=== PATIENT | female | born 1960 | race Two or more races ===

== ENCOUNTER 2022-01-09 09:52 | Day surgery (SDC) | payer MEDICAID ==
[2022-01-07 12:50] LABS: Urine WBC None Seen /hpf (0 - 5)
[2022-01-07 12:57] LABS: Urine Bacteria NONE SEEN /hpf (None Seen); Urine Blood Negative /uL (Negative); Urine Mucus FEW (None Seen)
[2022-01-07 13:00] LABS: Basophils # (auto) 0.1 10 ^3/uL (0-0.2); Eosinophils # (auto) 0.2 10 ^3/uL (0-0.8); Eosinophils % (auto) 2.8 % (0.0-7.0); Hematocrit 44.8 % (36.0-46.0); Hemoglobin 14.9 g/dL (12.2-16.2); Lymphocytes # (auto) 3.2 10 ^3/uL (0.4-5.4); Lymphocytes % (auto) 45.6 % (10.0-50.0); Mean Corpuscular Hemoglobin 31.5 pg (28.0-32.0); Mean Corpuscular Hgb Conc. 33.3 g/dL (32.0-36.0); Mean Corpuscular Volume 94.6 fL (80.0-100.0); Monocytes # (auto) 0.6 10 ^3/uL (0-1.3); Monocytes % (auto) 8.6 % (0.0-12.0); Neutrophils # (auto) 2.8 10 ^3/uL (1.6-8.6); Nucleated Red Blood Cells % 0.1 %; Red Blood Cells 4.74 10^6/uL (4.0-5.20); Red Cell Distribution Width 13.3 % (11.8-14.3); White Blood Cell 6.9 10^3/uL (4.4-10.8)
[2022-01-07 13:20] LABS: Albumin 3.4 g/dL (3.4-5.0); Calcium 9.2 mg/dL (8.5-10.1); Potassium 4.4 mmol/L (3.5-5.1)
[2022-01-07 13:22] LABS: BUN/Creatinine Ratio 16.2
[2022-01-07 13:25] LABS: Bilirubin, Total 0.3 mg/dL (0.2-1.0); INR 0.99 (0.9-1.15); Partial Thromboplastin Time 26.5 sec (23.6-33.0); Total Protein 7.1 g/dL (6.4-8.2)
[~2022-01-09] VITALS: Ht 162.6 cm; Wt 86.2 kg
[~2022-01-09 09:52] MED LIST: FAMO20TA10 PO; OMEP20TA PO; OXY5T PO
[2022-01-09] MEDS ORDERED: fentaNYL CITRATE 100 MCG/2 ML VL ONE (11:55)
[2022-01-09] MEDS ORDERED: MIDAZOLAM HCL 2MG/2ML 2ml VIAL (1mg/ml) ONE (11:55)
[2022-01-09] MEDS ORDERED: PROPOFOL 10 MG/ML 20 ML IV ONE (12:24)
[2022-01-09] MEDS ORDERED: ONDANSETRON HCL 4 MG/2 ML VIAL IV PRN (12:45)
== END 2022-01-09 13:00 | disposition home or self-care (01) ==
LOC: GI 09:52
PROVIDERS: ATTEND Internal Medicine Gastroenterology
DX: Z12.11 Encounter for screening for malignant neoplasm of colon (principal); K31.1 Adult hypertrophic pyloric stenosis; K44.9 Diaphragmatic hernia without obstruction or gangrene; K29.50 Unspecified chronic gastritis without bleeding; K57.30 Diverticulosis of large intestine without perforation or abscess without bleeding; K64.8 Other hemorrhoids; K64.4 Residual hemorrhoidal skin tags; K63.89 Other specified diseases of intestine; K21.9 Gastro-esophageal reflux disease without esophagitis; Z98.890 Other specified postprocedural states; Z79.899 Other long term (current) drug therapy; Z88.6 Allergy status to analgesic agent; Z87.891 Personal history of nicotine dependence; Z20.822 Contact with and (suspected) exposure to COVID-19; Z86.2 Personal history of diseases of the blood and blood-forming organs and certain disorders involving the immune mechanism
CPT/HCPCS: 36415; 43239; 43249; 45378; 80053; 81001; 85025; 85610; 85730; 88305; 88342; C1726; J2250; J2704; J3010; J7030; U0003; 99152; 99153

== ENCOUNTER 2022-03-21 16:57 | Emergency (ER) | payer MEDICAID ==
[~2022-03-21] VITALS: Ht 162.6 cm; Wt 85.0 kg
[2022-03-21 19:13] VITALS: BP 138/66
[2022-03-21] MEDS ORDERED: ERYTHROMY OPTH OINT 5mg/gm 1gm or 3.5gm tube OP ONE (19:45)
== END 2022-03-21 19:59 | disposition home or self-care (01) ==
LOC: ER 16:59
DX: S05.12XA Contusion of eyeball and orbital tissues, left eye, initial encounter (principal); Z79.899 Other long term (current) drug therapy; Z88.6 Allergy status to analgesic agent; W22.8XXA Striking against or struck by other objects, initial encounter; Y93.89 Activity, other specified; Y92.89 Other specified places as the place of occurrence of the external cause; Y99.8 Other external cause status

== ENCOUNTER 2023-04-04 17:52 | Inpatient (IN) | payer MEDICAID ==
[~2023-04-04] VITALS: Ht 162.6 cm; Wt 92.5 kg
[2023-04-04 18:17] VITALS: O2SAT 95
[2023-04-04 19:20] LABS: Basophils # (auto) 0.1 10 ^3/uL (0-0.2); Basophils % (auto) 0.9 % (0.0-2.0); Eosinophils # (auto) 0.2 10 ^3/uL (0-0.8); Eosinophils % (auto) 2.3 % (0.0-7.0); Hematocrit 48.9 % (36.0-46.0); Hemoglobin 16.6 g/dL (12.2-16.2); Lymphocytes # (auto) 1.5 10 ^3/uL (0.4-5.4); Lymphocytes % (auto) 16.1 % (10.0-50.0); Mean Corpuscular Hemoglobin 32.1 pg (28.0-32.0); Mean Corpuscular Hgb Conc. 33.9 g/dL (32.0-36.0); Mean Corpuscular Volume 94.5 fL (80.0-100.0); Monocytes % (auto) 10.9 % (0.0-12.0); Neutrophils # (auto) 6.4 10 ^3/uL (1.6-8.6); Neutrophils % (auto) 69.8 % (37.0-80.0); Nucleated Red Blood Cells % 0.1 %; Red Blood Cells 5.17 10^6/uL (4.0-5.20); Red Cell Distribution Width 13.7 % (11.8-14.3); White Blood Cell 9.1 10^3/uL (4.4-10.8)
[2023-04-04 19:27] LABS: INR 1.04 (0.9-1.15); Partial Thromboplastin Time 30.7 SEC (24.5-34.5); Prothrombin Time 10.9 sec (9.3-11.8)
[2023-04-04 19:30] VITALS: PULSE 80; RESP 20; O2SAT 97
[2023-04-04] MEDS ORDERED: MORPHINE SULFATE 4 MG/ML SYR/VIAL IV ONE (20:00)
[2023-04-04] MEDS ORDERED: ONDANSETRON HCL 4 MG/2 ML VIAL IV ONE (20:00)
[2023-04-04] MEDS ORDERED: DexAMETHasone SOD PHOS 10MG/1ML VIAL INJ IV ONE (21:00)
[2023-04-04] MEDS ORDERED: ALBUTEROL SULF 2.5 MG/0.5ML(0.5%) NEB SOLN NEB ONE (21:00)
[2023-04-04] MEDS ORDERED: LORazepam 2MG/ML-1ML VIAL IV ONE (21:00)
[2023-04-04 23:10] LABS: COVID19 ANTIGEN SOFIA FIA POSITIVE (NEGATIVE)
[2023-04-05] VITALS (14 sets, daily range): BP systolic 102–123; BP diastolic 49–68; PULSE 61–81; RESP 16–20; TEMP 97.4–98.5; O2SAT 91–96
[2023-04-05] MEDS ORDERED: ONDANSETRON HCL 4 MG/2 ML VIAL IV PRN (01:30)
[2023-04-05] MEDS ORDERED: ALBUTEROL SULF 2.5 MG/0.5ML(0.5%) NEB SOLN NEB PRN (01:30)
[2023-04-05] MEDS ORDERED: NITROGLYCERIN 0.4 MG SL TAB SL PRN (01:30)
[2023-04-05] MEDS ORDERED: HYDROcodone-ACET 5/325MG TAB PO PRN (01:30)
[2023-04-05] MEDS ORDERED: LORazepam 2MG/ML-1ML VIAL IV PRN (01:30)
[2023-04-05] MEDS ORDERED: DOCUSATE SOD 100 MG CAP PO PRN (01:30)
[2023-04-05] MEDS ORDERED: MORPHINE SULFATE INJ 2 MG/ml SYRG IV PRN (01:30)
[2023-04-05 02:02] LABS: Alanine Aminotransferase 32 U/L (7-40); Albumin 4.5 g/dL (3.2-4.8); Alkaline Phosphatase 94 U/L (46-116); Anion Gap 15 (5-15); Aspartate Aminotransferase 29 U/L (13-40); Bilirubin, Total 0.4 mg/dL (0.2-1.0); Calcium 9.2 mg/dL (8.7-10.4); Carbon Dioxide 17 mmol/L (20-30); Chloride 107 mmol/L (98-107); Glucose 97 mg/dL (74-106); Potassium 4.3 mmol/L (3.5-5.1); Sodium 139 mmol/L (136-145); Total Protein 7.4 g/dL (5.7-8.2)
[2023-04-05 02:13] LABS: BUN/Creatinine Ratio 6.7 (10.0-20.0); Blood Urea Nitrogen < 5 mg/dL (9-23)
[2023-04-05] MEDS: DOXYCYCLINE 100MG/250ML 250 ML IV SCH ×2 (04:19→18:22)
[2023-04-05] MEDS: SODIUM CHLOR 0.9% PF (SALINE LOCK) 10ML VIAL/SYR IV SCH ×3 (06:00→21:16)
[2023-04-05] MEDS ORDERED: ALBUTEROL SULF HFA 90MCG INH 200DOSE IN SCH (06:00)
[2023-04-05 06:41] LABS: Basophils # (auto) 0 10 ^3/uL (0-0.2); Basophils % (auto) 0.1 % (0.0-2.0); Eosinophils # (auto) 0 10 ^3/uL (0-0.8); Hematocrit 46.2 % (36.0-46.0); Hemoglobin 15.8 g/dL (12.2-16.2); Lymphocytes # (auto) 0.7 10 ^3/uL (0.4-5.4); Lymphocytes % (auto) 12.1 % (10.0-50.0); Mean Corpuscular Hemoglobin 32.4 pg (28.0-32.0); Mean Corpuscular Hgb Conc. 34.2 g/dL (32.0-36.0); Mean Corpuscular Volume 94.8 fL (80.0-100.0); Monocytes # (auto) 0.1 10 ^3/uL (0-1.3); Monocytes % (auto) 1.2 % (0.0-12.0); Neutrophils # (auto) 4.9 10 ^3/uL (1.6-8.6); Neutrophils % (auto) 86.6 % (37.0-80.0); Nucleated Red Blood Cells % 0.1 %; Red Blood Cells 4.87 10^6/uL (4.0-5.20); Red Cell Distribution Width 13.5 % (11.8-14.3); White Blood Cell 5.7 10^3/uL (4.4-10.8)
[2023-04-05 07:00] LABS: Alanine Aminotransferase 29 U/L (7-40); Albumin 4.4 g/dL (3.2-4.8); Alkaline Phosphatase 89 U/L (46-116); Anion Gap 7 (5-15); Aspartate Aminotransferase 21 U/L (13-40); BUN/Creatinine Ratio 9.1 (10.0-20.0); Bilirubin, Total 0.3 mg/dL (0.2-1.0); Blood Urea Nitrogen 7 mg/dL (9-23); Calcium 9.2 mg/dL (8.7-10.4); Carbon Dioxide 25 mmol/L (20-30); Chloride 104 mmol/L (98-107); Glucose 215 mg/dL (74-106); Potassium 4.6 mmol/L (3.5-5.1); Sodium 136 mmol/L (136-145)
[2023-04-05 07:01] LABS: Total Protein 7.2 g/dL (5.7-8.2)
[2023-04-05] MEDS: ENOXAPARIN SOD 40 MG/0.4 ML SYRINGE SC SCH (08:33)
[2023-04-05] MEDS: ASCORBIC ACID 1,000 MG TAB PO SCH (09:42)
[2023-04-05] MEDS: ZINC SULFATE 220mg CAP or TAB PO SCH (09:42)
[2023-04-05] MEDS: CHOLECALCIFEROL (VITD3) 2,000 UNIT CAP/TAB PO SCH (09:42)
[2023-04-05] MEDS: FAMOTIDINE (10MG/ML) 2ML VL IV SCH ×2 (09:43→21:15)
[2023-04-05] MEDS: ALBUTEROL SULF HFA 90MCG INH 200DOSE IN PRN ×2 (11:52→18:31)
[2023-04-05] MEDS: BUDESONIDE (INHALATION) 180 MCG IH IN SCH ×2 (11:52→18:31)
[2023-04-05] MEDS: ACETAMINOPHEN 325 MG TAB PO PRN (18:30)
[2023-04-05] MEDS: DexAMETHasone SOD PHOS 10MG/1ML VIAL INJ IV SCH (21:15)
[2023-04-06] VITALS (10 sets, daily range): BP systolic 102–121; BP diastolic 43–62; PULSE 47–80; RESP 14–20; TEMP 97.3–98.3; O2SAT 95–98
[2023-04-06 06:15] LABS: Basophils # (auto) 0 10 ^3/uL (0-0.2); Basophils % (auto) 0.1 % (0.0-2.0); Eosinophils # (auto) 0 10 ^3/uL (0-0.8); Hematocrit 45.9 % (36.0-46.0); Hemoglobin 15.7 g/dL (12.2-16.2); Lymphocytes # (auto) 1.1 10 ^3/uL (0.4-5.4); Lymphocytes % (auto) 12.3 % (10.0-50.0); Mean Corpuscular Hemoglobin 32.4 pg (28.0-32.0); Mean Corpuscular Hgb Conc. 34.1 g/dL (32.0-36.0); Mean Corpuscular Volume 94.9 fL (80.0-100.0); Monocytes # (auto) 0.2 10 ^3/uL (0-1.3); Monocytes % (auto) 2.3 % (0.0-12.0); Neutrophils # (auto) 7.6 10 ^3/uL (1.6-8.6); Neutrophils % (auto) 85.3 % (37.0-80.0); Red Blood Cells 4.83 10^6/uL (4.0-5.20); Red Cell Distribution Width 13.6 % (11.8-14.3); White Blood Cell 8.9 10^3/uL (4.4-10.8)
[2023-04-06 06:40] LABS: Alanine Aminotransferase 33 U/L (7-40); Alkaline Phosphatase 88 U/L (46-116); Anion Gap 6 (5-15); BUN/Creatinine Ratio 16.5 (10.0-20.0); Blood Urea Nitrogen 13 mg/dL (9-23); Calcium 9.4 mg/dL (8.7-10.4); Carbon Dioxide 25 mmol/L (20-30); Chloride 108 mmol/L (98-107); Glucose 160 mg/dL (74-106); Potassium 4.8 mmol/L (3.5-5.1); Sodium 139 mmol/L (136-145)
[2023-04-06 06:41] LABS: Albumin 4.2 g/dL (3.2-4.8); Aspartate Aminotransferase 28 U/L (13-40); Bilirubin, Total 0.2 mg/dL (0.2-1.0); Total Protein 6.9 g/dL (5.7-8.2)
[2023-04-06] MEDS: DOXYCYCLINE 100MG/250ML 250 ML IV SCH ×2 (06:48→17:57)
[2023-04-06] MEDS: SODIUM CHLOR 0.9% PF (SALINE LOCK) 10ML VIAL/SYR IV SCH ×3 (06:49→21:34)
[2023-04-06] MEDS: BUDESONIDE (INHALATION) 180 MCG IH IN SCH ×2 (10:30→18:40)
[2023-04-06] MEDS: ENOXAPARIN SOD 40 MG/0.4 ML SYRINGE SC SCH (10:35)
[2023-04-06] MEDS: FAMOTIDINE (10MG/ML) 2ML VL IV SCH ×2 (10:36→21:32)
[2023-04-06] MEDS: ZINC SULFATE 220mg CAP or TAB PO SCH (10:36)
[2023-04-06] MEDS: CHOLECALCIFEROL (VITD3) 2,000 UNIT CAP/TAB PO SCH (10:36)
[2023-04-06] MEDS: ASCORBIC ACID 1,000 MG TAB PO SCH (10:36)
[2023-04-06] MEDS: ACETAMINOPHEN 325 MG TAB PO PRN (21:16)
[2023-04-06] MEDS: DexAMETHasone SOD PHOS 10MG/1ML VIAL INJ IV SCH (21:33)
[2023-04-07] VITALS (12 sets, daily range): BP systolic 105–126; BP diastolic 50–58; PULSE 53–69; RESP 15–20; TEMP 97.5–98.2; O2SAT 95–99
[2023-04-07] MEDS: DOXYCYCLINE 100MG/250ML 250 ML IV SCH (06:17)
[2023-04-07] MEDS: SODIUM CHLOR 0.9% PF (SALINE LOCK) 10ML VIAL/SYR IV SCH ×3 (06:17→21:27)
[2023-04-07] MEDS: ALBUTEROL SULF HFA 90MCG INH 200DOSE IN PRN ×2 (06:59→19:42)
[2023-04-07] MEDS: BUDESONIDE (INHALATION) 180 MCG IH IN SCH ×2 (07:02→19:41)
[2023-04-07] MEDS: FAMOTIDINE (10MG/ML) 2ML VL IV SCH ×2 (08:55→21:27)
[2023-04-07] MEDS: ASCORBIC ACID 1,000 MG TAB PO SCH (08:55)
[2023-04-07] MEDS: CHOLECALCIFEROL (VITD3) 2,000 UNIT CAP/TAB PO SCH (08:55)
[2023-04-07] MEDS: ZINC SULFATE 220mg CAP or TAB PO SCH (08:55)
[2023-04-07] MEDS: ENOXAPARIN SOD 40 MG/0.4 ML SYRINGE SC SCH (08:55)
[2023-04-07] MEDS: guaiFENesin 200 MG/10 ML UD PO PRN ×3 (12:27→23:00)
[2023-04-07] MEDS: DexAMETHasone SOD PHOS 10MG/1ML VIAL INJ IV SCH (21:27)
[2023-04-07] MEDS: DOXYCYCLINE 100 MG TAB/CAP PO SCH (21:27)
[2023-04-08] VITALS (8 sets, daily range): BP systolic 112–146; BP diastolic 50–68; PULSE 43–62; RESP 15–18; TEMP 36.6–36.7; O2SAT 93–98
[2023-04-08] MEDS: SODIUM CHLOR 0.9% PF (SALINE LOCK) 10ML VIAL/SYR IV SCH (05:00)
[2023-04-08] MEDS: guaiFENesin 200 MG/10 ML UD PO PRN (06:28)
[2023-04-08] MEDS ORDERED: CHOL200064 PO (09:43)
[2023-04-08] MEDS ORDERED: ALBUAER3 IN (09:43)
[2023-04-08] MEDS ORDERED: ZINC220C10 PO (09:43)
[2023-04-08] MEDS ORDERED: DOXY-286 PO (09:43)
[2023-04-08] MEDS ORDERED: ASCO500C49 PO (09:43)
[2023-04-08] MEDS: FAMOTIDINE (10MG/ML) 2ML VL IV SCH (10:02)
[2023-04-08] MEDS: ASCORBIC ACID 1,000 MG TAB PO SCH (10:02)
[2023-04-08] MEDS: DOXYCYCLINE 100 MG TAB/CAP PO SCH (10:02)
[2023-04-08] MEDS: ENOXAPARIN SOD 40 MG/0.4 ML SYRINGE SC SCH (10:02)
[2023-04-08] MEDS: ZINC SULFATE 220mg CAP or TAB PO SCH (10:03)
[2023-04-08] MEDS: CHOLECALCIFEROL (VITD3) 2,000 UNIT CAP/TAB PO SCH (10:03)
[2023-04-08] MEDS: BUDESONIDE (INHALATION) 180 MCG IH IN SCH (10:23)
[2023-04-08] MEDS: ALBUTEROL SULF HFA 90MCG INH 200DOSE IN PRN (10:24)
== END 2023-04-08 15:08 | disposition home or self-care (01) | DRG 137 ==
LOC: ER 17:52 → TELE 04-05 01:28 → TELE-WESTW 04-05 02:57 → TELE-EAST 04-05 03:13 → TELE-WESTW 04-05 03:14
PROVIDERS: ADMIT Nurse Practitioner Family; ATTEND Family Medicine
DX: U07.1 COVID-19 (principal); J96.01 Acute respiratory failure with hypoxia; J12.82 Pneumonia due to coronavirus disease 2019; Z80.3 Family history of malignant neoplasm of breast; Z80.8 Family history of malignant neoplasm of other organs or systems; R79.89 Other specified abnormal findings of blood chemistry
CPT/HCPCS: 36415; 71045; 80053; 82306; 83605; 83615; 84484; 85025; 85379; 85610; 85730; 87040; 87426; 93005; 94640; 96374; 96375; G0378; J1100; J2405; J3490

== ENCOUNTER 2024-05-07 17:39 | Emergency (ER) | payer MEDICAID ==
[~2024-05-07] VITALS: Ht 162.6 cm; Wt 86.5 kg
[~2024-05-07 17:39] MED LIST changes: +ALBUAER3 IN; +ASCO500C49 PO; +CHOL200064 PO; +DOXY-286 PO; -FAMO20TA10 PO; +ZINC220C10 PO
[2024-05-07 17:48] VITALS: BP 169/80; PULSE 68; RESP 18; TEMP 99.1; O2SAT 94
[2024-05-07 18:39] LABS: Basophils # (auto) 0.1 10 ^3/uL (0-0.2); Eosinophils # (auto) 0.2 10 ^3/uL (0-0.8); Eosinophils % (auto) 2.4 % (0.0-7.0); Hematocrit 46.9 % (36.0-46.0); Lymphocytes # (auto) 3.2 10 ^3/uL (0.4-5.4); Lymphocytes % (auto) 37.7 % (10.0-50.0); Mean Corpuscular Hemoglobin 32.5 pg (28.0-32.0); Mean Corpuscular Hgb Conc. 34.1 g/dL (32.0-36.0); Mean Corpuscular Volume 95.2 fL (80.0-100.0); Monocytes # (auto) 0.7 10 ^3/uL (0-1.3); Neutrophils # (auto) 4.3 10 ^3/uL (1.6-8.6); Neutrophils % (auto) 50.9 % (37.0-80.0); Nucleated Red Blood Cells % 0.1 %; Platelet Count (auto) 205 10^3/uL (140-450); Red Blood Cells 4.93 10^6/uL (4.0-5.20); Red Cell Distribution Width 13.6 % (11.8-14.3); White Blood Cell 8.5 10^3/uL (4.4-10.8)
[2024-05-07 18:49] LABS: Chloride 110 mmol/L (98-107); Potassium 3.8 mmol/L (3.5-5.1); Sodium 140 mmol/L (136-145)
[2024-05-07 18:50] LABS: Anion Gap 6 (5-15); Carbon Dioxide 24 mmol/L (20-31)
[2024-05-07 18:51] LABS: Calcium 9.5 mg/dL (8.7-10.4)
[2024-05-07 18:54] LABS: Uric Acid 4.8 mg/dL (3.1-7.8)
[2024-05-07 18:55] LABS: BUN/Creatinine Ratio 9.2 (10.0-20.0); Blood Urea Nitrogen 9 mg/dL (9-23); Glucose 104 mg/dL (74-106)
[2024-05-07] MEDS ORDERED: IBUP-1455 PO (19:33)
[2024-05-07] MEDS: HYDROcodone-ACET 10/325MG TAB PO ONE (21:15)
== END 2024-05-07 21:26 | disposition home or self-care (01) ==
LOC: ER 17:39
DX: M25.561 Pain in right knee (principal); I10 Essential (primary) hypertension; Z79.899 Other long term (current) drug therapy; Z88.6 Allergy status to analgesic agent
CPT/HCPCS: 36415; 73562; 80048; 84550; 85025